=== PATIENT | female | born 1970 | race Caucasian/White ===

== ENCOUNTER 2019-06-11 09:41 | Emergency (ER) | payer BC ==
[~2019-06-11] VITALS: Ht 167.6 cm; Wt 81.6 kg
[2019-06-11] MEDS ORDERED: NAPROSYN500 MG PO (11:04)
== END 2019-06-11 11:05 | disposition home or self-care (01) ==
LOC: ED 09:41
DX: S86.912A Strain of unspecified muscle(s) and tendon(s) at lower leg level, left leg, initial encounter (principal); F17.200 Nicotine dependence, unspecified, uncomplicated; Z91.040 Latex allergy status; X58.XXXA Exposure to other specified factors, initial encounter; Y93.89 Activity, other specified; Y92.89 Other specified places as the place of occurrence of the external cause; Y99.8 Other external cause status

== ENCOUNTER → 2019-06-29 | Outpatient (CLI) | payer BC ==
[~2019-06-29] MED LIST: NAPROSYN500 MG PO
[2019-06-29 15:29] LABS: BASO # 0.1 10*3/uL (0.0-0.1); BASO % 0.4 % (0.0-1.0); EOS # 0.2 10*3/uL (0.0-0.4); EOS % 1.5 % (1.0-4.0); HEMOGLOBIN 15.6 g/dl (12.0-16.0); LYMPH # 4.1 10*3/uL (1.3-4.4); LYMPH % 30.4 % (27.0-41.0); MEAN CELL VOLUME 88.2 fl (81.0-99.0); MEAN CORPUSCULAR HGB 29.3 pg (27.0-31.0); MEAN CORPUSCULAR HGB CONC 33.2 g/dl (33.0-37.0); MEAN PLATELET VOLUME 11.8 fl (9.6-12.3); MONO # 0.7 10*3/uL (0.1-1.0); MONO % 4.9 % (3.0-9.0); NEUT # 8.5 10*3/uL (2.3-7.9); NEUT % 62.7 % (47.0-73.0); PLATELET COUNT AUTOMATED 212 10*3/uL (130-400); RED BLOOD COUNT 5.33 10*6/uL (4.10-5.10); RED CELL DISTRI WIDTH 13.3 % (0-14.5); WHITE BLOOD COUNT 13.5 10*3/uL (4.8-10.8)
[2019-06-30 08:09] LABS: HEPATITIS B SURFACE AG Negative (Negative); HEPATITIS C VIRUS ANTIBODY <0.1 s/co (0.0-0.9); RHEUMATOID ARTHRITIS FACTOR <10.0 IU/mL (0.0-13.9)
[2019-06-30 13:07] LABS: ANTI-RNP ANTIBODIES 0.2 AI (0.0-0.9)
[2019-06-30 22:03] LABS: CCP ANTIBODIES IGG/IGA 7 units (0-19)
[2019-07-01 01:03] LABS: LUPUS REFLEX INTERPRETATION Comment: (.)
[2019-07-04 12:03] LABS: HLA-B27 ANTIGEN Negative (.)
== END | disposition home or self-care (01) ==
LOC: LAB 14:34 → US 15:00
PROVIDERS: Orthopaedic Surgery
DX: M79.605 Pain in left leg (principal); M79.89 Other specified soft tissue disorders